=== PATIENT | male | born 1940 | race Caucasian/White ===

== ENCOUNTER 2016-07-04 03:00 | Inpatient (IN) | payer BC ==
--- NOTE | ~2016-07-04 | OP ---
Record Of Operation [facility] [address] [place]. [address] NAME: ODNI CHAVARRIA : 44 STATUS : ADM Hope PAT#: [id number] AGE: 75 ADM/REG DATE : 07/04/16 MR#: [id number] REPORT SERV DATE: 07/05/16 DICTATED BY: GIORGI SHOEMAKER DATE: 07/05/16 REPORT STATUS : Draft TRANSCRIBED BY: MODL DATE: 07/05/16 DATE OF PROCEDURE: 07/05/2016 PROCEDURES: Left heart catheterization, left ventriculography, coronary angiography. INDICATIONS: Symptoms compatible with unstable angina. INCLUSION SPECIALIST: Giorgi Shoemaker M.D., [facility], [facility]. PROCEDURE NOTE: Informed consent was obtained. The patient was brought to catheterization laboratory in the fasting state with renal prophylaxis protocol initiated. Routine sterile prep and drape performed. Monitored sedation administered. 2% Xylocaine with epinephrine infiltrated to right groin. A 6-Venezuelan sheath to right femoral artery following anterior wall puncture. A 6-Venezuelan angled pigtail crossed the aortic valve without difficulty. Left ventricular pressures recorded and left ventriculography in SOFIA view. Pullback to ascending aorta under pressure recording and catheter exchanged for 6-Venezuelan JL5 and JR4 diagnostic catheters, which were used to cannulate coronary arteries. Angiography of each vessel performed. All catheters removed. Right common femoral arterial sheath side port angiography performed followed by ProGlide closure of common femoral puncture site and adjunctive manual pressure in catheterization laboratory for 20 minutes with ooze. The patient to recovery area in satisfactory condition, without immediate complication, anticipating administration of Ancef. TOTAL CONTRAST: 100 mL Isovue-370. TOTAL X-RAY DOSE: 398 mGy. FINDINGS: HEMODYNAMICS: Central aortic pressure 130/60 mmHg, mean 85 mmHg. Left ventricular pressure 130/20 mmHg. LEFT VENTRICULOGRAPHY: In SOFIA left ventriculography, all segments move normally. Ejection fraction is estimated to be no lower than 60%. No mitral regurgitation identified. CORONARIES: 1. Left main coronary artery: Medium caliber, medium length vessel without stenosis. 2. LAD: Large caliber vessel reaching and wrapping around the apex of the heart. Two diagonal branches are seen; the first is larger than the second. Distal LAD "bridge" identified. 3. Circumflex: Medium caliber, angiographically nondominant vessel giving rise to large ramus intermedius vessel and a smaller AV groove circumflex artery giving rise to a small first obtuse marginal branch. No stenosis identified in the circumflex system. 4. Right coronary artery: Medium caliber, angiographically dominant vessel terminating as small posterior descending artery and medium caliber posterolateral artery. Midvessel ectasia is seen without stenosis identified. Record Of Operation [place] [address] [place]. [address] NAME: ODIN CHAVARRIA : 44 STATUS : ADM Hope PAT#: [id number] AGE: 75 ADM/REG DATE : 07/04/16 MR#: [id number] REPORT SERV DATE: 07/05/16 DICTATED BY: GIORGI SHOEMAKER DATE: 07/05/16 REPORT STATUS : Draft TRANSCRIBED BY: SUNG DATE: 07/05/16 FINAL IMPRESSION: 1. Minimally elevated left ventricular end-diastolic pressure. 2. Normal LVEF without segmental wall motion abnormalities. 3. No mitral regurgitation. 4. Distal LAD "bridge.". 5. Angiographically normal circumflex artery. 6. Ectasia of right coronary artery without stenosis. /MODL Giorgi Shoemaker M.D. / [id number] CC: Sven Benitez M.D. Michael Goodman, M.D.
--- NOTE | ~2016-07-04 | HP ---
History And Physical [place] [id number] [facility] [place]. [address] NAME: ODIN CHAVARRIA : 44 STATUS : ADM Hope PAT#: [id number] AGE: 75 ADM/REG DATE : 07/04/16 MR#: [id number] REPORT SERV DATE: 07/04/16 DICTATED BY: GIORGI SHOEMAKER DATE: 07/04/16 REPORT STATUS : Draft TRANSCRIBED BY: MODL DATE: 07/04/16 DATE OF ADMISSION: 07/04/2016 CHIEF COMPLAINT: Chest pain. HPI: 75-year-old man, history of paroxysmal atrial fibrillation with [id number] score of 2 and on Xarelto, Crohn's disease, sleep apnea, mild nonischemic cardiomyopathy with LVEF estimated 40% by echo 06/23, borderline diabetes, hypercholesteremia, and hypertension. The patient developed epigastric discomfort radiating to the left arm yesterday at rest that lasted 1 hour and 15 minutes. He presented to the emergency room at [facility] where EKG was nondiagnostic and cardiac markers were negative. He has been pain-free since presentation to medical care. PAST MEDICAL HISTORY: 1. Impaired glucose tolerance. 2. Hypercholesterolemia. 3. Obesity. 4. Crohn's disease. 5. Asbestosis-followed by Dr. Berry. 6. Sleep apnea-followed by Dr. Draper. 7. Pericardial effusion-small by echo 06/2014 without evidence of tamponade physiology. 8. EPT-[id number] score of 2, on Xarelto. 9. Mild nonischemic cardiomyopathy. HOME MEDICATIONS: Calcium plus vitamin D daily, doxazosin 4 mg daily, multivitamins daily, omeprazole 20 mg daily, rivaroxaban 20 mg daily, magnesium over the counter. ALLERGIES: NKDA. SOCIAL HISTORY: The patient is with 2 children. He is retired after 41 year career at [employer]. He smoked as a young adult only. He does not consume alcohol by report. He drinks 8 cups of caffeinated coffee a day. FAMILY HISTORY: Mother of congestive heart failure in her 80s without history of premature coronary artery disease. No first-degree relatives with history of premature coronary artery disease. REVIEW OF SYSTEMS: Unremarkable. PHYSICAL EXAMINATION: GENERAL: No acute distress. Obese. VITAL SIGNS: 167/77, respirations 20, pulse 60 and regular, temperature 98.1. NECK: No JVD. No carotid bruits. LUNGS: Clear. CARDIAC: Premature beats evident with I/ systolic murmur, no diastolic murmur. History And Physical [place] [address] [place] [address] NAME: ODIN CHAVARRIA : 44 STATUS : ADM Hope PAT#: [id number] AGE: 75 ADM/REG DATE : 07/04/16 MR#: [id number] REPORT SERV DATE: 07/04/16 DICTATED BY: GIORGI SHOEMAKER DATE: 07/04/16 REPORT STATUS : Draft TRANSCRIBED BY: MODL DATE: 07/04/16 ABDOMEN: Obese. EXTREMITIES: Right and left femoral pulses +2. Right and left dorsalis pedis pulses +2. DATA: EKG pending. Other Labs: Troponin-I undetectable. White blood cell count 4500, hematocrit 45.6%, platelet count 142,000. BUN and creatinine 9 and 1.20 yielding EGFR 60. ASSESSMENT AND PLAN: 1. Chest pain-compatible with acute coronary syndrome without myocardial infarction. I have started aspirin and Brilinta per routine. Holding Xarelto and started heparin. Catheterization possible PCI indicated with all risks discussed. 2. PAF-sinus rhythm with PACs now. Xarelto held and heparin begun. 3. Hypertension-starting nitrate. 4. Hypercholesteremia-not on statin presently. We will initiate atorvastatin 80 mg for plaque stabilization. 5. Nonischemic cardiomyopathy-clinically compensated. /MODL Giorgi Shoemaker M.D. / [id number] CC: Sven Benitez M.D. Michael Goodman, M.D.
[~2016-07-04 03:00] MED LIST: CARDU4 PO; FISH-EPA1000 MG PO; MAGNESIUM PO; MULTIPLE VIT PO; OS500+D PO; PRILO PO; XARELTO20 MG PO
[2016-07-05 01:51] LABS: BASOPHILS 0.3 %; BASOPHILS ABSOLUTE 0.02 10/3/uL (0.0-0.16); EOSINOPHILS 1.9 %; EOSINOPHILS ABSOLUTE 0.11 10/3/uL (0.0-0.53); HEMOGLOBIN 12.3 g/dL (13.6-17.8); IMMATURE GRANULOCYTES 0.2 %; IMMATURE GRANULOCYTES ABSOLUTE 0.01 10/3/uL (0.0-0.11); LYMPHOCYTES 23.9 %; LYMPHOCYTES ABSOLUTE 1.37 10/3/uL (0.67-4.30); MEAN CORPUSCULAR HEMOGLOB 29.3 pg (26.0-34.0); MEAN CORPUSCULAR VOLUME 91.4 fL (80-100); MEAN PLATELET VOLUME 11.8 fL (9.2-13.0); MONOCYTES 12.4 %; MONOCYTES ABSOLUTE 0.71 10/3/uL (0.21-1.20); NEUTROPHILS 61.3 %; NEUTROPHILS ABSOLUTE 3.52 10/3/uL (2.02-8.40); PLATELET COUNT 126 10/3/uL (150-400); RBC DISTRIBUTION WIDTH 15.9 % (12.0-16.0); WHITE BLOOD CELLS 5.7 10/3/uL (4.5-10.5)
[2016-07-05 01:55] LABS: HEMATOCRIT 38.4 % (40.0-51.0); MANUAL DIFF NO %
[2016-07-05 02:01] LABS: INTERNATIONAL NORMAL RATI 1.3 UNITS (-); PROTIME (NOT ORD) 15.6 SEC (12.0-14.5)
[2016-07-05 02:02] LABS: PARTIAL THROMBO TIME 68.7 SEC (22.5-37.2)
[2016-07-05 02:05] LABS: BUN (BLOOD UREA NITROGEN) 14 MG/DL (6-23); CALCIUM, SERUM 8.5 MG/DL (8.5-10.4); CHLORIDE, SERUM 112 MMOL/L (96-112); CHOL/HDL RATIO(NOT ORDER) 3.4 (0-5); CHOLESTEROL 155 MG/DL (< 200); CO2 (CARBON DIOXIDE) 26 MMOL/L (24-34); CREATININE 1.13 MG/DL (0.70-1.30); GFR AFRICAN AMERICAN 74 ML/MIN (>=60); GFR NON AFRICAN AMERICAN 64 ML/MIN (>=60); GLUCOSE, SERUM 107 MG/DL (60-99); HDL CHOLESTEROL 46 MG/DL (> 39); LDL CHOLESTEROL 89 MG/DL (< 130); NON-HDL CHOLESTEROL 109 MG/DL (< 160); POTASSIUM, SERUM 3.9 MMOL/L (3.5-5.3); SGPT(ALT) 31 U/L (5-65); SODIUM, SERUM 147 MMOL/L (135-148); TRIGLYCERIDE 103 MG/DL (< 150)
[2016-10-25] MEDS ORDERED: MULTIPLE VIT PO (10:10)
[2016-10-25] MEDS ORDERED: VITAMIN D31000 UNIT PO (10:10)
[2016-10-25] MEDS ORDERED: NIACIN 500 PO (10:10)
[2017-01-10] MEDS ORDERED: PRIN10 PO (09:46)
[2017-01-10] MEDS ORDERED: NITROSTAT0.4 MG SL (10:09)
[2017-01-10] MEDS ORDERED: OMNICEF300 PO (10:10)
[2017-01-10] MEDS ORDERED: CIP5 PO (10:10)
== END 2016-07-05 16:30 | disposition home or self-care (01) | DRG 287 ==
LOC: CDU1 03:00 → 5NO 19:09
PROVIDERS: Internal Medicine Cardiovascular Disease
PROC: 4A023N7 Measurement of Cardiac Sampling and Pressure, Left Heart, Percutaneous Approach (ICD-10-PCS; principal; 2016-07-05)
PROC: B2111ZZ Fluoroscopy of Multiple Coronary Arteries using Low Osmolar Contrast (ICD-10-PCS; 2016-07-05)
PROC: B2151ZZ Fluoroscopy of Left Heart using Low Osmolar Contrast (ICD-10-PCS; 2016-07-05)
DX: I24.9 Acute ischemic heart disease, unspecified (principal); I42.9 Cardiomyopathy, unspecified; I48.0 Paroxysmal atrial fibrillation; I10 Essential (primary) hypertension; E78.00 Pure hypercholesterolemia, unspecified; E78.5 Hyperlipidemia, unspecified; Z79.899 Other long term (current) drug therapy
CPT/HCPCS: 71020; 80048; 80061; 80076; 83690; 83735; 84460; 84484; 85025; 85610; 85730; 93005; 93458; 96365; 99152; 99285; A9270-GY; C1760; C1769; C1894; G0378; J0690; J2250; J3010; Q9967